=== PATIENT | male | born 1970 | race Caucasian/White ===

== ENCOUNTER 2020-06-11 12:08 | Inpatient (IN) ==
[2020-06-11] MEDS ORDERED: 0.9 % Sodium Chloride 1,000 ML IVC ONE (12:59)
[2020-06-11 14:04] LABS: Hematocrit 48.9 % (37.5-50.1); Mean Corpuscular HGB Conc 32.7 g/dL (31.6-35.5); Mean Corpuscular Hemoglobin 29.7 pg (28.0-33.3); Mean Corpuscular Volume 90.9 fL (83.0-100.0); Mean Platelet Volume 10.8 fL (9.4-12.4); Platelet Count 302 K/mcL (140-400); Red Blood Count 5.38 M/mcL (4.19-5.50); Red Cell Distribution Width 14.1 % (11.5-14.5); White Blood Count 9.9 K/mcL (4.3-11.1)
[2020-06-11 14:05] LABS: Basophils # 0.1 K/mcL (0.0-0.2); Basophils % 0.5 %; Eosinophils # 0.1 K/mcL (0.0-0.6); Immature Granulocytes % 0.7 % (0-4); Lymphocytes # 2.1 K/mcL (0.6-4.6); Monocytes # 0.8 K/mcL (0.0-1.3); Monocytes % 7.8 %; Neutrophils # 6.9 K/mcL (1.6-8.9)
[2020-06-11] MEDS ORDERED: Azithromycin 500 MG in D5% in Water 250 ML IVPB ONE (14:20)
[2020-06-11] MEDS ORDERED: cefTRIAXone 1,000 MG in Water for inj. (sterile) 10 ML IVP ONE (14:20)
[2020-06-11 14:21] LABS: BUN/Creatinine Ratio 8 (6-26); Blood Urea Nitrogen 9 mg/dL (6-20); Calcium 8.9 mg/dL (8.6-10.3); Carbon Dioxide 27 mEq/L (23-29); Chloride 103 mEq/L (98-107); Glucose 147 mg/dL (70-105); Osmolality,Calculated 289 (280-300); Potassium 3.6 mEq/L (3.5-5.1); Sodium 139 mEq/L (136-145); Troponin I < 0.03 ng/mL (< 0.04); eGFR For African Americans > 60 (> 60); eGFR For Non-African Americans > 60 (> 60)
[2020-06-11] MEDS ORDERED: Albuterol 2.5 MG/3 ML NEBULIZER IH PRN (16:58)
[2020-06-11] MEDS ORDERED: Naloxone 0.4 MG/ML INJ IVP PRN (17:00)
[2020-06-11] MEDS ORDERED: Acetaminophen 325 MG TABLET PO PRN (17:00)
[2020-06-11] MEDS ORDERED: *HR* Metoprolol 5 MG/5 ML VIAL IVP ONE (17:26)
[2020-06-11] MEDS: predniSONE 20 MG TABLET PO SCH (17:44)
[2020-06-11] MEDS ORDERED: *HR* LORazepam 2 MG/ML VIAL IVP PRN ×2 (18:19)
[2020-06-11] MEDS: Folic Acid 1 MG TABLET PO SCH (18:47)
[2020-06-11] MEDS: Benzonatate 100 MG CAPSULE PO PRN (18:47)
[2020-06-11] MEDS: Vitamin B Complex/Vit C/Vit E 1 EACH TABLET PO SCH (18:47)
[2020-06-11] MEDS: Metoprolol XL (24 HR) Succ 50 MG TAB.ER.24H PO SCH (19:30)
[2020-06-12] MEDS: DilTIAZem 50 MG in 0.9 % Sodium Chloride 40 ML IVC SCH ×4 (00:23→16:00)
[2020-06-12 06:16] LABS: Basophils % 0.2 %; Hematocrit 46.1 % (37.5-50.1); Lymphocytes # 0.9 K/mcL (0.6-4.6); Lymphocytes % 11.2 %; Mean Corpuscular HGB Conc 32.5 g/dL (31.6-35.5); Mean Corpuscular Hemoglobin 29.1 pg (28.0-33.3); Mean Corpuscular Volume 89.3 fL (83.0-100.0); Mean Platelet Volume 10.2 fL (9.4-12.4); Monocytes # 0.4 K/mcL (0.0-1.3); Monocytes % 5.1 %; Neutrophils # 6.6 K/mcL (1.6-8.9); Platelet Count 288 K/mcL (140-400); Red Blood Count 5.16 M/mcL (4.19-5.50); Segmented Neutrophils % 82.5 %
[2020-06-12 08:05] LABS: Alanine Aminotransferase 46 Units/L (7-52); Albumin 4.1 g/dL (3.5-5.7); Albumin/Globulin Ratio 1.3 (1.1-2.2); Alkaline Phosphatase 77 Units/L (34-104); Aspartate Amino Transferase 28 Units/L (13-39); BUN/Creatinine Ratio 15 (6-26); Bilirubin,Total 0.7 mg/dL (0.3-1.0); Blood Urea Nitrogen 11 mg/dL (6-20); Calcium 8.9 mg/dL (8.6-10.3); Carbon Dioxide 23 mEq/L (23-29); Chloride 106 mEq/L (98-107); Globulin 3.2 g/dL (2.4-3.5); Glucose 155 mg/dL (70-105); Osmolality,Calculated 287 (280-300); Sodium 137 mEq/L (136-145); Total Protein 7.3 g/dL (6.4-8.9); eGFR For African Americans > 60 (> 60); eGFR For Non-African Americans > 60 (> 60)
[2020-06-12] MEDS: Metoprolol XL (24 HR) Succ 50 MG TAB.ER.24H PO SCH ×2 (08:31→19:29)
[2020-06-12] MEDS: Folic Acid 1 MG TABLET PO SCH (08:31)
[2020-06-12] MEDS: predniSONE 20 MG TABLET PO SCH (08:31)
[2020-06-12] MEDS: Vitamin B Complex/Vit C/Vit E 1 EACH TABLET PO SCH (08:31)
[2020-06-12] MEDS ORDERED: cefTRIAXone 1,000 MG in Water for inj. (sterile) 10 ML IVP SCH (09:00)
[2020-06-12] MEDS: *HR* LORazepam 2 MG/ML VIAL IVP PRN (12:04)
[2020-06-12] MEDS ORDERED: amLODIPine 5 MG TABLET PO SCH (12:30)
[2020-06-12] MEDS ORDERED: Azithromycin 500 MG in 0.9 % Sodium Chloride 250 ML IVPB SCH (15:00)
[2020-06-12] MEDS ORDERED: Magnesium Sulfate 1 GM/102 ML PIGGYBACK IVPB ONE (15:08)
[2020-06-12] MEDS: DilTIAZem CD (24hr) 120 MG CAP.ER.24H PO SCH (17:04)
[2020-06-12] MEDS: Benzonatate 100 MG CAPSULE PO PRN (19:29)
[2020-06-13] MEDS: DilTIAZem 50 MG in 0.9 % Sodium Chloride 40 ML IVC SCH ×6 (02:43→20:58)
[2020-06-13] MEDS: Benzonatate 100 MG CAPSULE PO PRN (04:58)
[2020-06-13 05:29] LABS: Basophils % 0.3 %; Eosinophils % 0.1 %; Hematocrit 44.4 % (37.5-50.1); Lymphocytes # 1.7 K/mcL (0.6-4.6); Lymphocytes % 15.1 %; Mean Corpuscular HGB Conc 33.8 g/dL (31.6-35.5); Mean Corpuscular Hemoglobin 29.9 pg (28.0-33.3); Mean Corpuscular Volume 88.6 fL (83.0-100.0); Mean Platelet Volume 10.3 fL (9.4-12.4); Monocytes # 0.8 K/mcL (0.0-1.3); Monocytes % 7.2 %; Neutrophils # 8.4 K/mcL (1.6-8.9); Platelet Count 328 K/mcL (140-400); Red Blood Count 5.01 M/mcL (4.19-5.50); Red Cell Distribution Width 13.9 % (11.5-14.5); Segmented Neutrophils % 76.3 %; White Blood Count 10.9 K/mcL (4.3-11.1)
[2020-06-13 05:53] LABS: BUN/Creatinine Ratio 18 (6-26); Blood Urea Nitrogen 15 mg/dL (6-20); Calcium 8.5 mg/dL (8.6-10.3); Carbon Dioxide 25 mEq/L (23-29); Chloride 105 mEq/L (98-107); Glucose 107 mg/dL (70-105); Osmolality,Calculated 289 (280-300); Phosphorous 3.3 mg/dL (2.7-4.5); Potassium 3.6 mEq/L (3.5-5.1); Sodium 139 mEq/L (136-145); eGFR For African Americans > 60 (> 60); eGFR For Non-African Americans > 60 (> 60)
[2020-06-13] MEDS ORDERED: *HR* Enoxaparin 40 MG/0.4 ML SYRINGE SQ SCH (06:00)
[2020-06-13] MEDS ORDERED: Perflutren Lipid Microsphere 1.3 ML in 0.9 % Sodium Chloride 8.7 ML IVP PRN (07:20)
[2020-06-13] MEDS: Metoprolol XL (24 HR) Succ 50 MG TAB.ER.24H PO SCH ×2 (07:49→20:31)
[2020-06-13] MEDS: levoFLOXacin 750 MG TABLET PO SCH (07:49)
[2020-06-13] MEDS: DilTIAZem CD (24hr) 120 MG CAP.ER.24H PO SCH (07:49)
[2020-06-13] MEDS: Furosemide 20 MG/2 ML VIAL IVP SCH ×2 (07:49→20:31)
[2020-06-13] MEDS: predniSONE 20 MG TABLET PO SCH (07:49)
[2020-06-13] MEDS: Folic Acid 1 MG TABLET PO SCH (07:49)
[2020-06-13] MEDS: Vitamin B Complex/Vit C/Vit E 1 EACH TABLET PO SCH (07:49)
[2020-06-13] MEDS: *HR* LORazepam 2 MG/ML VIAL IVP PRN ×2 (07:55→11:58)
[2020-06-13] MEDS ORDERED: Furosemide 40 MG/4 ML VIAL IVP SCH (09:00)
[2020-06-13] MEDS ORDERED: *HR* Heparin 5,000 UNIT/ML VIAL IVP ONE (10:31)
[2020-06-13] MEDS ORDERED: *HR* Heparin 5,000 UNIT/ML VIAL IVP PRN ×2 (10:31)
[2020-06-13] MEDS: Heparin 25,000UNIT/250ML 1/2NS 25,000 UNIT/250 ML IV.SOLN IVC SCH (11:47)
[2020-06-13 12:10] LABS: Hematocrit 45.5 % (37.5-50.1); Hemoglobin 15.2 g/dL (12.9-16.9); Mean Corpuscular HGB Conc 33.4 g/dL (31.6-35.5); Mean Corpuscular Hemoglobin 29.1 pg (28.0-33.3); Mean Platelet Volume 10.5 fL (9.4-12.4); Platelet Count 353 K/mcL (140-400); Red Blood Count 5.23 M/mcL (4.19-5.50); Red Cell Distribution Width 13.9 % (11.5-14.5); White Blood Count 13.1 K/mcL (4.3-11.1)
[2020-06-13 12:16] LABS: Heparin anti-factor XA UFH 0.09 IU/mL (0.30-0.70); INR 1.1; Prothrombin Time 12.8 Seconds (9.4-12.1)
[2020-06-13 16:45] LABS: Influenza A PCR Negative (Negative); Influenza B PCR Negative (Negative); Resp. Syncytial Virus PCR Negative (Negative)
[2020-06-13] MEDS ORDERED: MethylPREDNISolone 40 MG/ML VIAL IVP SCH (18:00)
[2020-06-13 18:25] LABS: SARS-CoV-2 by PCR (In House) Positive (Negative)
[2020-06-14] MEDS: *HR* LORazepam 2 MG/ML VIAL IVP PRN ×2 (00:40→13:59)
[2020-06-14] MEDS: Heparin 25,000UNIT/250ML 1/2NS 25,000 UNIT/250 ML IV.SOLN IVC SCH (00:57)
[2020-06-14 02:38] LABS: Fibrinogen 430 mg/dL (169-393)
[2020-06-14 02:45] LABS: D-Dimer 323 ng/mLFEU (0-500)
[2020-06-14 02:51] LABS: Lactate Dehydrogenase 166 Units/L (140-271)
[2020-06-14 03:06] LABS: Ferritin 142 ng/mL (20-250)
[2020-06-14] MEDS: levoFLOXacin 750 MG TABLET PO SCH (08:04)
[2020-06-14] MEDS: Metoprolol XL (24 HR) Succ 50 MG TAB.ER.24H PO SCH ×2 (08:04→23:24)
[2020-06-14] MEDS: Vitamin B Complex/Vit C/Vit E 1 EACH TABLET PO SCH (08:04)
[2020-06-14] MEDS: Furosemide 20 MG/2 ML VIAL IVP SCH ×2 (08:04→23:23)
[2020-06-14] MEDS: Folic Acid 1 MG TABLET PO SCH (08:04)
[2020-06-14] MEDS: DilTIAZem CD (24hr) 120 MG CAP.ER.24H PO SCH (08:04)
[2020-06-14] MEDS: Benzonatate 100 MG CAPSULE PO PRN (08:38)
[2020-06-14] MEDS ORDERED: Amiodarone Premix 360 MG/200 ML BAG IVC ONE (13:14)
[2020-06-14] MEDS: *HR* Rivaroxaban 10 MG TABLET PO SCH (15:20)
[2020-06-14] MEDS ORDERED: Nicotine 2 MG GUM BC PRN (16:46)
[2020-06-14] MEDS: Amiodarone Premix 360 MG/200 ML BAG IVC SCH (19:49)
[2020-06-15] MEDS: *HR* LORazepam 2 MG/ML VIAL IVP PRN (01:21)
[2020-06-15] MEDS: Furosemide 20 MG/2 ML VIAL IVP SCH ×2 (08:23→22:12)
[2020-06-15] MEDS: Folic Acid 1 MG TABLET PO SCH (08:23)
[2020-06-15] MEDS: levoFLOXacin 750 MG TABLET PO SCH (08:23)
[2020-06-15] MEDS: Amiodarone Premix 360 MG/200 ML BAG IVC SCH (08:24)
[2020-06-15] MEDS: Vitamin B Complex/Vit C/Vit E 1 EACH TABLET PO SCH (08:24)
[2020-06-15] MEDS: Metoprolol XL (24 HR) Succ 50 MG TAB.ER.24H PO SCH ×2 (08:30→21:04)
[2020-06-15] MEDS ORDERED: DilTIAZem 50 MG in 0.9 % Sodium Chloride 40 ML IVC SCH (11:30)
[2020-06-15] MEDS: *HR* Rivaroxaban 10 MG TABLET PO SCH (16:29)
[2020-06-15] MEDS: *HR* Amiodarone 200 MG TABLET PO SCH (21:07)
[2020-06-16 02:39] LABS: Hemoglobin 16.1 g/dL (12.9-16.9); Mean Corpuscular HGB Conc 33.5 g/dL (31.6-35.5); Mean Corpuscular Hemoglobin 29.5 pg (28.0-33.3); Mean Corpuscular Volume 88.1 fL (83.0-100.0); Mean Platelet Volume 10.2 fL (9.4-12.4); Platelet Count 453 K/mcL (140-400); Red Blood Count 5.45 M/mcL (4.19-5.50); Red Cell Distribution Width 13.8 % (11.5-14.5); White Blood Count 17.7 K/mcL (4.3-11.1)
[2020-06-16 02:59] LABS: BUN/Creatinine Ratio 26 (6-26); Blood Urea Nitrogen 23 mg/dL (6-20); Calcium 9.2 mg/dL (8.6-10.3); Carbon Dioxide 23 mEq/L (23-29); Chloride 102 mEq/L (98-107); Glucose 171 mg/dL (70-105); Magnesium 2.1 mg/dL (1.6-2.6); Osmolality,Calculated 290 (280-300); Potassium 3.9 mEq/L (3.5-5.1); Sodium 136 mEq/L (136-145); eGFR For African Americans > 60 (> 60); eGFR For Non-African Americans > 60 (> 60)
[2020-06-16] MEDS: Metoprolol XL (24 HR) Succ 50 MG TAB.ER.24H PO SCH (10:00)
[2020-06-16] MEDS: *HR* Amiodarone 200 MG TABLET PO SCH (10:00)
[2020-06-16] MEDS: Vitamin B Complex/Vit C/Vit E 1 EACH TABLET PO SCH (10:00)
[2020-06-16] MEDS: Folic Acid 1 MG TABLET PO SCH (10:00)
[2020-06-16] MEDS: Furosemide 20 MG/2 ML VIAL IVP SCH (10:01)
[2020-06-16] MEDS ORDERED: *HR* Digoxin 0.5 MG/2 ML AMPUL IVP ONE (10:07)
[2020-06-16 12:08] VITALS: BP 124/83
[2020-06-16] MEDS ORDERED: *HR* Digoxin 0.5 MG/2 ML AMPUL IVP SCH (16:00)
== END 2020-06-16 13:37 | disposition home or self-care (01) | DRG 177 ==
LOC: 2ANU 12:08 → EMEROOARM 12:08 → SUATTDRO 15:44 → 2ANU 16:59 → SUATTDRO 06-13 13:40 → 2NENU 06-13 18:13
PROVIDERS: ADMIT Internal Medicine; ATTEND Internal Medicine